=== PATIENT | male | born 1980 | race Caucasian/White ===

== ENCOUNTER 2021-02-13 11:52 | Inpatient (IN) | payer OTHER ==
[~2021-02-13] VITALS: Ht 177.8 cm; Wt 101.5 kg
[~2021-02-13 11:52] MED LIST: ACET1TAB55 PO; CELE1CAP4 PO; DOCU100C16 PO; LR 1,000 ML IV ONE; ONDA-83 PO; OXYC5CAP56 PO; TOPA100T12 PO; ceFAZolin SOD 2 GM in IV 1 EA IV ONE
[2021-02-13] MEDS ORDERED: LR 1,000 ML IV SCH ×2 (13:30→16:05)
[2021-02-13] MEDS ORDERED: ACETAMINOPHEN *IV* 1,000 MG IV ONE ×2 (13:35)
[2021-02-13] MEDS ORDERED: propofoL 200 MG/20 ML VIAL As Ordered ONE (14:06)
[2021-02-13] MEDS ORDERED: ONDANSETRON 4MG/2ML VIAL As Ordered ONE (14:06)
[2021-02-13] MEDS ORDERED: METOCLOPRAMIDE INJ 10MG/2ML VIAL (J2765 PER 1) As Ordered ONE (14:06)
[2021-02-13] MEDS ORDERED: LIDOCAINE 2% 100MG/5ML SDV (FOR ANES.) As Ordered ONE (14:06)
[2021-02-13] MEDS ORDERED: MIDAZOLAM INJ 2MG/2ML VIAL (J2250 PER 1MG) As Ordered ONE (14:07)
[2021-02-13] MEDS ORDERED: fentaNYL 100 MCG/2 ML INJECTION (J3010) As Ordered ONE (14:07)
[2021-02-13] MEDS ORDERED: BUPIVACAINE LIPOSOME/PF 1.3% 20ML VIAL (13.3MG/ML)(EXPAREL)(C9290 PER1MG) As Ordered ONE (14:26)
[2021-02-13] MEDS ORDERED: KETOROLAC 60MG 2ML VIAL As Ordered ONE (15:17)
[2021-02-13] MEDS ORDERED: HYDROmorphone HCL 2 MG/ML 1ML VIAL As Ordered ONE (15:18)
[2021-02-13 15:59] LABS: WHITE BLOOD COUNT 11.4 10^3/uL (4.0-10.0)
[2021-02-13] MEDS ORDERED: HYDROMORPHONE HCL 0.5 MG/ 0.5 ML SYRINGE (J1170 PER 1) IV PRN (16:05)
[2021-02-13] MEDS ORDERED: oxyCODONE 5MG TAB PO PRN (16:05)
[2021-02-13] MEDS ORDERED: ONDANSETRON 4MG/2ML VIAL IV PRN (16:05)
[2021-02-13] MEDS ORDERED: fentaNYL 100 MCG/2 ML INJECTION (J3010) IV PRN (16:05)
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
[2021-02-13] MEDS ORDERED: VANCOMYCIN HCL 0 MG in IV FLUID PLACE HOLDER 1 EA IV SCH (16:55)
[2021-02-13 17:00] VITALS: BP 119/83
[2021-02-13] MEDS: LR 1,000 ML IV SCH (17:28)
[2021-02-13 17:30] VITALS: BP 127/85
[2021-02-13] MEDS: PIPERACILLIN/TAZOBACTAM SOD 3.375 GM in D5W MINI-BAG PLUS 50 ML IV SCH ×2 (17:54→23:43)
--- NOTE | 2021-02-13 17:56 | RO ---
OPERATIVE NOTE DATE OF OPERATION: 02/13/2021 TIME: 3 p.m. PREOPERATIVE DIAGNOSIS: Right knee surgical wound dehiscence. POSTOPERATIVE DIAGNOSIS: Right knee surgical wound dehiscence. NAME OF OPERATION: Right surgical wound irrigation, debridement and primary closure. SURGEON: Ventura Dubose MD NUMBERER AND WIRER: None. SUPERVISING ATTENDING: Ventura Dubose MD FINDINGS: The patient had serosanguineous drainage of the traumatically dehisced right knee surgical wound. INDICATIONS: This was a 40-year-old male who was two weeks status post a right patella hardware removal surgical procedure by Dr. Wallace. The patient was doing well. However, the patient fell onto his right knee on the January, and dehisced his right surgical incision. He was seen at the [facility] ER he received a bedside irrigation and debridement and dressing. The patient presented to the [facility] for further evaluation and treatment and he was indicated for a right surgical incision, irrigation and debridement and primary closure with swabs taken for concern for possible infection. ANESTHESIA: GETA. TOURNIQUET TIME: 30 minutes. ESTIMATED BLOOD LOSS: 20 mL. IV FLUIDS: Please see anesthesia report. IV ANTIBIOTICS: Please see anesthesia report. IMPLANTS: None. CULTURES: Aerobic and anaerobic. SPECIMENS: Right knee prepatellar bursa. DESCRIPTION OF PROCEDURE: The patient was met in the preoperative holding area where the patient's operative extremity was signed. The patient's consent was confirmed to be correct. The patient's identity was confirmed to be correct. The patient was then transported to the operating theater where he was placed in supine position in a regular surgical flat-top table. A safety strap secured the patient to the bed. All bony prominences were well padded. The contralateral lower extremities had an SCD placed. A timeout was called which confirmed the correct patient, correct operative extremity and correct consent. All staff were in agreement. The patient's leg was then draped in the usual sterile fashion. We began the procedure by obtaining aerobic and anaerobic cultures of the serosanguineous drainage from his right traumatically dehisced surgical wound. After this, I then used a curette to debride any bursal appearing tissue. I extended the incision 1 cm proximal to the dehiscence and 1 cm distal which gained access to the prepatellar region. I clipped the epidermal skin edges and used a curette to debride any necrotic looking tissue or granulation tissue. Once this was concluded, I copiously irrigated with six liters of normal saline, accessing both the supra and infrapatellar pouches. Once this copious irrigation of six liters was complete, I then performed a primary closure using 3-0 interrupted mattress suture in interrupted fashion. I placed a negative pressure wound therapy dressing followed by Donavon bandage. The patient's right lower extremity was placed in a knee immobilizer. The patient was then extubated without complication and transported to the postanesthesia care unit. The patient will follow the hardware removal rehabilitative protocol. We obtained aerobic and anaerobic cultures. We will observe these over the next 48 hours to see if there are any signs of infection. The patient will receive a white blood cell count, ESR, CRP in order to trend for a possible infection as well. The patient's care will be transferred to the hospitalist for management of his medical comorbidities. The patient will be admitted for 24 to 48 hours until we feel that he is either not infected or treated appropriately. The patient will follow up in two weeks in the [facility] for a two week postoperative wound check. The patient likely will not require a second procedure. However, if we are concerned for infection, there is the possibility that he may undergo a second right knee irrigation and debridement.
[2021-02-13 18:00] VITALS: BP 128/84
[2021-02-13 18:23] VITALS: BP 123/72
[2021-02-13 18:52] LABS: BASO % 0.3 % (0.0-1.0); BLOOD UREA NITROGEN 17 MG/DL (7-18); CALCIUM LEVEL 8.4 MG/DL (8.5-10.1); CARBON DIOXIDE LEVEL 28 MEQ/L (21-32); CHLORIDE LEVEL 105 MEQ/L (98-107); CREATININE FOR GFR 0.96 MG/DL (0.70-1.30); EOS % 0.3 % (0.0-3.0); GLOMERULAR FILTRATION RATE > 60.0 (>60); GLUCOSE, FASTING 102 MG/DL (70-100); HEMOGLOBIN 12.6 g/dl (13.5-17.5); LYMPH # 1.2 10^3/uL (1.5-5.0); LYMPH % 10.9 % (24.0-44.0); MAGNESIUM LEVEL 1.7 MG/DL (1.8-2.4); MEAN CORPUSCULAR HEMOGLOBIN 28.6 pg (27.0-33.0); MEAN CORPUSCULAR HGB CONC 32.3 g/dl (32.0-36.5); MEAN CORPUSCULAR VOLUME 88.4 fl (80.0-96.0); MONO # 0.8 10^3/uL (0.0-0.8); MONO % 7.5 % (2.0-8.0); NEUTROPHILS # 8.6 10^3/uL (1.5-8.5); NEUTROPHILS % 80.7 % (36.0-66.0); PHOSPHORUS LEVEL 2.3 MG/DL (2.5-4.9); PLATELET COUNT, AUTOMATED 171 10^3/uL (150-450); RED BLOOD COUNT 4.41 10^6/uL (4.30-6.10); SODIUM LEVEL 139 MEQ/L (136-145); WHITE BLOOD COUNT 10.6 10^3/uL (4.0-10.0)
[2021-02-13 20:00] VITALS: BP 124/69
[2021-02-13] MEDS ORDERED: VANCOMYCIN HCL 1,000 MG, VIAL MATE ADAPTER 1 EACH in NS 250 ML IV ONE ×2 (20:00→21:00)
[2021-02-13] MEDS: TOPIRAMATE (TopAMAX) 100 MG TAB PO SCH (21:41)
[2021-02-13 23:40] VITALS: BP 139/82
[2021-02-14] MEDS: ACETAMINOPHEN TAB 650MG DOSE (2X325MG) PO PRN ×4 (01:24→21:08)
[2021-02-14] MEDS: VANCOMYCIN HCL 1,000 MG, VIAL MATE ADAPTER 1 EACH in NS 250 ML IV SCH ×2 (02:17→15:04)
[2021-02-14] MEDS ORDERED: MORPHINE 2 MG/ML 1ML VIAL (J2270) IV ONE (02:25)
[2021-02-14] MEDS: VANCOMYCIN HCL 750 MG, VIAL MATE ADAPTER 1 EACH in NS 250 ML IV SCH ×2 (03:51→16:29)
[2021-02-14 04:00] VITALS: BP 136/76
[2021-02-14 06:00] LABS: HEMOGLOBIN 11.6 g/dl (13.5-17.5); MEAN CORPUSCULAR HEMOGLOBIN 28.5 pg (27.0-33.0); MEAN CORPUSCULAR HGB CONC 32.2 g/dl (32.0-36.5); MEAN CORPUSCULAR VOLUME 88.5 fl (80.0-96.0); PLATELET COUNT, AUTOMATED 172 10^3/uL (150-450); RED BLOOD COUNT 4.07 10^6/uL (4.30-6.10); WHITE BLOOD COUNT 7.3 10^3/uL (4.0-10.0)
[2021-02-14] MEDS: PIPERACILLIN/TAZOBACTAM SOD 3.375 GM in D5W MINI-BAG PLUS 50 ML IV SCH ×2 (06:16→11:34)
[2021-02-14 06:19] LABS: BLOOD UREA NITROGEN 12 MG/DL (7-18); CALCIUM LEVEL 7.7 MG/DL (8.5-10.1); CARBON DIOXIDE LEVEL 28 MEQ/L (21-32); CHLORIDE LEVEL 108 MEQ/L (98-107); CREATININE FOR GFR 1.05 MG/DL (0.70-1.30); GLOMERULAR FILTRATION RATE > 60.0 (>60); GLUCOSE, FASTING 101 MG/DL (70-100); MAGNESIUM LEVEL 1.9 MG/DL (1.8-2.4); PHOSPHORUS LEVEL 1.5 MG/DL (2.5-4.9); POTASSIUM SERUM 3.8 MEQ/L (3.5-5.1); SODIUM LEVEL 139 MEQ/L (136-145)
[2021-02-14 08:00] VITALS: BP 120/75
[2021-02-14] MEDS: LR 1,000 ML IV SCH (08:41)
[2021-02-14] MEDS: DOCUSATE SODIUM 100MG CAPSULE PO SCH (08:41)
[2021-02-14] MEDS: TOPIRAMATE (TopAMAX) 100 MG TAB PO SCH ×2 (08:41→20:05)
[2021-02-14 12:00] VITALS: BP 126/77
[2021-02-14] MEDS ORDERED: oxyCODONE 5MG TAB PO ONE (13:35)
--- NOTE | 2021-02-14 15:12 | IPNPDOC ---
Subjective Date Seen The patient was seen on 02/14/21. Subjective Chief Complaint/HPI Patient seen and examined this morning. He had no new complaints and reported feeling well. Other systems 10 point review of system was negative except for what is noted in the HPI Objective Physical Examination Other physical findings General: Lying in bed, no acute distress Head/Neck/Throat: Trachea midline, mucous membranes moist Eyes: Sclera anicteric, PERRLA Thorax: Normal respiratory effort on room air, lungs clear to auscultation bilaterally, no wheezes/rales/rhonchi Cardiovascular: Normal rate, regular rhythm, normal S1, S2; no S3, S4, rubs/gallops/murmurs Abdomen: Bowel sounds present, soft/nontender/nondistended Genitourinary: No CVA tenderness, no Chou in place Musculoskeletal: Moving all extremities, no edema Skin: Warm, dry. Right leg was wrapped and exam was deferred to orthopedic team Neurologic: AAOx3, speech fluent and goal-directed, no focal deficits, grossly intact Assessment /Plan Assessment #Sepsis -Meet sepsis criteria with fever, tachycardia, leukocytosis and soft tissue infection on admission. -Hemodynamically stable. DC fluids. Discontinue Zosyn, and continue Vancomycin. Await for final cultures. #Soft tissue infection -Management as above #Electrolyte abnormality -Replete phosphorus. #Migraines -Continue with topiramate 100 mg twice daily #DVT prophylaxis -Heparin subq Plan/VTE VTE Prophylaxis Ordered?: Yes VS, I&O, 24H, [facility] Vital Signs/I&O Vital Signs Date Time Temp Pulse Resp B/P (MAP) Pulse Ox O2 Delivery O2 Flow Rate FiO2 02/14/21 13:50 16 02/14/21 12:00 98.7 93 126/77 (93) 96 Room Air 02/14/21 04:00 2.0 I&O- Last 24 Hours up to 6 AM 02/14/21 06:00 Intake Total 2695 ml Output Total 1345 ml Balance 1350 ml Laboratory Data 24H LABS Laboratory Tests 2 02/13/21 17:43: Immature Granulocyte % (Auto) 0.3, Neutrophils (%) (Auto) 80.7H, Lymphocytes (%) (Auto) 10.9L, Monocytes (%) (Auto) 7.5, Eosinophils (%) (Auto) 0.3, Basophils (%) (Auto) 0.3, Neutrophils # (Auto) 8.6H, Lymphocytes # (Auto) 1.2L, Monocytes # (Auto) 0.8, Eosinophils # (Auto) 0.0, Basophils # (Auto) 0.0, Nucleated Red Blood Cells % (auto) 0.0, Anion Gap 6L, Glomerular Filtration Rate > 60.0, Lactic Acid Level 0.8, Calcium Level 8.4L, Phosphorus Level 2.3L, Magnesium Level 1.7L 02/14/21 05:32: Nucleated Red Blood Cells % (auto) 0.0, Anion Gap 3L, Glomerular Filtration Rate > 60.0, Calcium Level 7.7L, Phosphorus Level 1.5#L, Magnesium Level 1.9 CBC/BMP Laboratory Tests 02/13/21 17:43 02/14/21 05:32 Microbiology Microbiology 02/13/21 Blood Culture, Received Pending 02/13/21 Blood Culture, Received Pending 02/13/21 Anaerobic Culture, Received Pending 02/13/21 Gram Stain - Final, Resulted 02/13/21 Wound Culture, Resulted Pending 02/13/21 Anaerobic Culture, Received Pending 02/13/21 Gram Stain - Final, Resulted 02/13/21 Wound Culture, Resulted Pending BRAXTON GOSS M.D. Feb 14, 2021 15:12
[2021-02-14 16:00] VITALS: BP 137/74
[2021-02-14] MEDS ORDERED: K-PHOS ORIGINAL (POT.ACID PHOSPHATE) 500MG TAB PO ONE (17:00)
[2021-02-14 18:53] VITALS: BP 124/79
[2021-02-14 22:00] VITALS: BP 131/81
[2021-02-15] MEDS: VANCOMYCIN HCL 750 MG, VIAL MATE ADAPTER 1 EACH in NS 250 ML IV SCH ×3 (02:38→18:12)
[2021-02-15] MEDS: ACETAMINOPHEN TAB 650MG DOSE (2X325MG) PO PRN ×5 (02:42→22:12)
[2021-02-15] MEDS: VANCOMYCIN HCL 500 MG in D5W MINI-BAG PLUS 100 ML IV SCH ×3 (04:06→18:12)
[2021-02-15 06:00] VITALS: BP 126/81
[2021-02-15 07:17] LABS: HEMATOCRIT 40.2 % (42.0-52.0); HEMOGLOBIN 12.8 g/dl (13.5-17.5); MEAN CORPUSCULAR HEMOGLOBIN 28.5 pg (27.0-33.0); MEAN CORPUSCULAR HGB CONC 31.8 g/dl (32.0-36.5); MEAN CORPUSCULAR VOLUME 89.5 fl (80.0-96.0); PLATELET COUNT, AUTOMATED 218 10^3/uL (150-450); RED BLOOD COUNT 4.49 10^6/uL (4.30-6.10); WHITE BLOOD COUNT 7.7 10^3/uL (4.0-10.0)
[2021-02-15 07:33] LABS: BLOOD UREA NITROGEN 8 MG/DL (7-18); CALCIUM LEVEL 8.7 MG/DL (8.5-10.1); CARBON DIOXIDE LEVEL 25 MEQ/L (21-32); CHLORIDE LEVEL 112 MEQ/L (98-107); CREATININE FOR GFR 0.97 MG/DL (0.70-1.30); GLOMERULAR FILTRATION RATE > 60.0 (>60); GLUCOSE, FASTING 95 MG/DL (70-100); MAGNESIUM LEVEL 2.2 MG/DL (1.8-2.4); PHOSPHORUS LEVEL 2.3 MG/DL (2.5-4.9); POTASSIUM SERUM 4.3 MEQ/L (3.5-5.1); SODIUM LEVEL 142 MEQ/L (136-145)
[2021-02-15 08:34] LABS: ERYTHROCYTE SEDIMENTATION RATE 68 mm/hr (0-15)
[2021-02-15] MEDS: DOCUSATE SODIUM 100MG CAPSULE PO SCH (09:00)
[2021-02-15] MEDS: TOPIRAMATE (TopAMAX) 100 MG TAB PO SCH ×2 (09:10→20:52)
[2021-02-15 14:00] VITALS: BP_SYST 138; BP_SYST 178; BP_DIAS 86; BP_DIAS 98
--- NOTE | 2021-02-15 19:27 | IPNPDOC ---
Subjective Date Seen The patient was seen on 02/15/21. Subjective Chief Complaint/HPI Patient was seen and examine at bedside this morning. He had no new complaints, and reports improvement in his leg pain. Denies chills, palpitations, chest pain, abdominal pain, nausea, vomiting, problems with urination bowel movements. Objective Physical Examination Other physical findings General: Lying in bed, no acute distress Head/Neck/Throat: Trachea midline, mucous membranes moist Eyes: Sclera anicteric, no erythema or discharge appreciated bilaterally Thorax: Normal respiratory effort on room air, lungs clear to auscultation bilaterally, no wheezes/rales/rhonchi Cardiovascular: Normal rate, regular rhythm, normal S1, S2; no S3, S4, rubs/gallops/murmurs Abdomen: Bowel sounds present, soft/nontender/nondistended Genitourinary: No CVA tenderness, no Chou in place Musculoskeletal: Moving all extremities, no edema Skin: Warm, dry. Right leg was wrapped and exam was deferred to orthopedic team Neurologic: AAOx3, speech fluent and goal-directed, no focal deficits, grossly intact Assessment /Plan Assessment #Sepsis -Meet sepsis criteria with fever, tachycardia, leukocytosis and soft tissue infection on admission. -Hemodynamically stable. DC fluids. -continue Vancomycin. Await for final cultures. #Soft tissue infection -Management as above #Electrolyte abnormality -Replete phosphorus. #Migraines -Continue with topiramate 100 mg twice daily #DVT prophylaxis -Heparin subq Plan/VTE VTE Prophylaxis Ordered?: Yes VS, I&O, 24H, Fishbone Vital Signs/I&O Vital Signs Date Time Temp Pulse Resp B/P (MAP) Pulse Ox O2 Delivery O2 Flow Rate FiO2 02/15/21 14:00 98.8 89 18 138/86 (103) 98 Room Air 02/14/21 04:00 2.0 I&O- Last 24 Hours up to 6 AM 02/15/21 06:00 Intake Total 3310 ml Output Total 2150 ml Balance 1160 ml Laboratory Data 24H LABS Laboratory Tests 2 02/15/21 00:55: Vancomycin Level Trough 11.1 02/15/21 06:56: Nucleated Red Blood Cells % (auto) 0.0, Erythrocyte Sedimentation Rate 68H, Anion Gap 5L, Glomerular Filtration Rate > 60.0, Calcium Level 8.7, Phosphorus Level 2.3#L, Magnesium Level 2.2, C-Reactive Protein, Quantitative 16.90H CBC/BMP Laboratory Tests 02/15/21 06:56 Microbiology Microbiology 02/13/21 Blood Culture - Preliminary, Resulted No Growth after 48 hours. All Specime... 02/13/21 Blood Culture - Preliminary, Resulted No Growth after 48 hours. All Specime... 02/13/21 Anaerobic Culture - Final, Complete 02/13/21 Gram Stain - Final, Resulted 02/13/21 Wound Culture - Preliminary, Resulted Staphylococcus Aureus 02/13/21 Anaerobic Culture - Final, Complete 02/13/21 Gram Stain - Final, Resulted 02/13/21 Wound Culture - Preliminary, Resulted Staphylococcus Aureus BRAXTON GOSS M.D. Feb 15, 2021 19:27
[2021-02-15 21:00] VITALS: BP 145/88
[2021-02-16] MEDS: VANCOMYCIN HCL 750 MG, VIAL MATE ADAPTER 1 EACH in NS 250 ML IV SCH (02:08)
[2021-02-16] MEDS: ACETAMINOPHEN TAB 650MG DOSE (2X325MG) PO PRN ×4 (02:16→16:19)
[2021-02-16] MEDS: VANCOMYCIN HCL 500 MG in D5W MINI-BAG PLUS 100 ML IV SCH (03:16)
[2021-02-16 05:00] VITALS: BP 124/80
[2021-02-16 07:20] LABS: HEMOGLOBIN 13.1 g/dl (13.5-17.5); MEAN CORPUSCULAR HEMOGLOBIN 28.9 pg (27.0-33.0); MEAN CORPUSCULAR HGB CONC 32.8 g/dl (32.0-36.5); MEAN CORPUSCULAR VOLUME 88.1 fl (80.0-96.0); PLATELET COUNT, AUTOMATED 257 10^3/uL (150-450); RED BLOOD COUNT 4.54 10^6/uL (4.30-6.10)
[2021-02-16 07:34] LABS: BLOOD UREA NITROGEN 10 MG/DL (7-18); CALCIUM LEVEL 8.8 MG/DL (8.5-10.1); CARBON DIOXIDE LEVEL 20 MEQ/L (21-32); CHLORIDE LEVEL 114 MEQ/L (98-107); GLOMERULAR FILTRATION RATE > 60.0 (>60); GLUCOSE, FASTING 98 MG/DL (70-100); MAGNESIUM LEVEL 2.2 MG/DL (1.8-2.4); PHOSPHORUS LEVEL 2.6 MG/DL (2.5-4.9); POTASSIUM SERUM 4.1 MEQ/L (3.5-5.1); SODIUM LEVEL 142 MEQ/L (136-145)
[2021-02-16] MEDS: DOCUSATE SODIUM 100MG CAPSULE PO SCH (09:00)
[2021-02-16] MEDS ORDERED: LACTOBACILLUS ACIDOPHILUS CAP (BACID) PO SCH (09:00)
[2021-02-16] MEDS: TOPIRAMATE (TopAMAX) 100 MG TAB PO SCH (09:44)
[2021-02-16] MEDS ORDERED: oxyCODONE 5MG TAB PO PRN (10:45)
[2021-02-16] MEDS: CEPHALEXIN 500 MG CAP PO SCH ×3 (11:36→16:32)
--- NOTE | 2021-02-16 12:16 | REP ---
INDICATION: knee pain s/p hardware removal and fall. COMPARISON: None. TECHNIQUE: AP and cross-table lateral portable right knee radiographs. FINDINGS: AP and lateral views of the right knee demonstrate intramedullary rods in the distal femur and proximal tibia. There are 2 metallic screws in the patella. There is patellar irregularity in some peripatellar soft tissue swelling. No malalignment. Surgical drain is noted. IMPRESSION: Postop imaging right knee. Metallic screws and femoral and tibial intramedullary rods. <Electronically signed by Mikel Gomez > 02/16/21 [id number]
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
[2021-02-16] MEDS ORDERED: CEPH500T PO (13:45)
--- NOTE | 2021-02-16 15:45 | IPNPDOC ---
Text Note Date of Service The patient was seen on 02/16/21. NOTE Ortho Progress Note - Patient seen at bedside for re-eval and wound check. Doing well, pain much better than before surgery. Prevena in place, no issues. Exam: wound evaluated to right knee, no expressible drainage present, prevena replaced with mepilex. Otherwise NVI. A: 40 M with right knee wound opening after traumatic fall. XR performed shows no fracture. Wound well appearing. P: OK to discharge with close follow up with ortho and ID. Will go on PO abx f or 2 weeks per ID. Recommend WBAT in full extension with knee immobilizer, no ROM until seen in f/u by ortho. No dressing change until seen at next clinic appointment. Johnathan Crawley VS,Marija, I+O VS, Marija I+O Laboratory Tests 02/16/21 06:51 Vital Signs Date Time Temp Pulse Resp B/P (MAP) Pulse Ox O2 Delivery O2 Flow Rate FiO2 02/16/21 12:06 18 Room Air 02/16/21 05:00 97.7 74 124/80 (95) 97 02/14/21 04:00 2.0 I&O- Last 24 Hours up to 6 AM 02/16/21 06:00 Intake Total 2345 ml Output Total 0 ml Balance 2345 ml YULI CRAWLEY MD Feb 16, 2021 15:45
== END 2021-02-16 16:45 | disposition home or self-care (01) | DRG 909 ==
LOC: M SDC 11:52 → M PCU 16:37 → M MS5PR 16:50 → M PCU 18:08 → M MSPAV 02-14 18:44
PROVIDERS: ADMIT Internal Medicine; ATTEND Internal Medicine
PROC: 0MBN0ZZ Excision of Right Knee Bursa and Ligament, Open Approach (ICD-10-PCS; principal; 2021-02-13 13:30)
DX: T81.30XA Disruption of wound, unspecified, initial encounter (principal); G43.909 Migraine, unspecified, not intractable, without status migrainosus; Y83.8 Other surgical procedures as the cause of abnormal reaction of the patient, or of later complication, without mention of misadventure at the time of the procedure; B95.61 Methicillin susceptible Staphylococcus aureus infection as the cause of diseases classified elsewhere; Z79.899 Other long term (current) drug therapy

== ENCOUNTER → 2021-03-04 | Outpatient (CLI) | payer OTHER ==
[~2021-03-04] MED LIST changes: +CEPH500T PO; -LR 1,000 ML IV ONE; -ceFAZolin SOD 2 GM in IV 1 EA IV ONE
[2021-03-04 14:17] LABS: BASO # 0.1 10^3/uL (0.0-0.2); BASO % 1.1 % (0.0-1.0); EOS # 0.2 10^3/uL (0.0-0.5); EOS % 2.8 % (0.0-3.0); HEMATOCRIT 44.4 % (42.0-52.0); HEMOGLOBIN 14.1 g/dl (13.5-17.5); LYMPH % 25.5 % (24.0-44.0); MEAN CORPUSCULAR HEMOGLOBIN 28.5 pg (27.0-33.0); MEAN CORPUSCULAR HGB CONC 31.8 g/dl (32.0-36.5); MEAN CORPUSCULAR VOLUME 89.7 fl (80.0-96.0); MONO # 0.5 10^3/uL (0.0-0.8); MONO % 6.5 % (2.0-8.0); NEUTROPHILS # 5.1 10^3/uL (1.5-8.5); NEUTROPHILS % 63.8 % (36.0-66.0); PLATELET COUNT, AUTOMATED 490 10^3/uL (150-450); RED BLOOD COUNT 4.95 10^6/uL (4.30-6.10)
[2021-03-04 14:42] LABS: ERYTHROCYTE SEDIMENTATION RATE 18 mm/hr (0-15)
== END ==
LOC: M PLALAB 10:57
PROVIDERS: ATTEND Internal Medicine Infectious Disease
DX: A49.01 Methicillin susceptible Staphylococcus aureus infection, unspecified site (principal)
CPT/HCPCS: 36415; 85025; 85652; 86140; G0463

== ENCOUNTER → 2021-03-28 | Outpatient (CLI) | payer OTHER ==
[2021-03-28 10:34] LABS: BASO # 0.1 10^3/uL (0.0-0.2); BASO % 0.9 % (0.0-1.0); EOS # 0.3 10^3/uL (0.0-0.5); EOS % 2.9 % (0.0-3.0); HEMATOCRIT 45.7 % (42.0-52.0); HEMOGLOBIN 14.6 g/dl (13.5-17.5); LYMPH # 1.7 10^3/uL (1.5-5.0); LYMPH % 19.7 % (24.0-44.0); MEAN CORPUSCULAR HEMOGLOBIN 28.4 pg (27.0-33.0); MEAN CORPUSCULAR HGB CONC 31.9 g/dl (32.0-36.5); MEAN CORPUSCULAR VOLUME 88.9 fl (80.0-96.0); MONO # 0.5 10^3/uL (0.0-0.8); MONO % 5.5 % (2.0-8.0); NEUTROPHILS % 70.6 % (36.0-66.0); PLATELET COUNT, AUTOMATED 222 10^3/uL (150-450); RED BLOOD COUNT 5.14 10^6/uL (4.30-6.10); WHITE BLOOD COUNT 8.5 10^3/uL (4.0-10.0)
[2021-03-28 11:08] LABS: ERYTHROCYTE SEDIMENTATION RATE 6 mm/hr (0-15)
== END ==
LOC: M PLALAB 08:57
PROVIDERS: ATTEND Internal Medicine Infectious Disease
DX: T81.49XA Infection following a procedure, other surgical site, initial encounter (principal); Y84.8 Other medical procedures as the cause of abnormal reaction of the patient, or of later complication, without mention of misadventure at the time of the procedure